=== PATIENT | female | born 1995 | race African-American/Black ===

== ENCOUNTER 2017-03-25 12:02 | Emergency (ER) | payer SELFPAY ==
[~2017-03-25] VITALS: Ht 170.2 cm; Wt 68.2 kg
[2017-03-25 12:03] VITALS: BP 133/89; PULSE 115; RESP 13; TEMP 99.5; O2SAT 100
--- NOTE | 2017-03-25 13:20 | PD ---
HPI Chief Complaint: Cold / Flu Symptoms Time Seen by Provider: 12:59 Travel History International Travel<30 days: No Contact w/Intl Traveler<30days: No History of Present Illness HPI Patient comes to the emergency department complaining of cold/flulike symptoms ongoing for 6 days. Patient reports sneezing in runny nose, then began having a nonproductive cough, subjective fevers, and sore throat. Patient's been using cough drops for symptomatic relief. Denies anything making symptoms worse. Denies any known sick contacts. Denies any chest pain, shortness of breath, headaches, neck pain, abdominal pain, nausea, vomiting, diarrhea, , or loss or change in bowel or bladder. Denies any radiation of pain. PFSH Past Medical History Medical History: Denies Significant Hx ?: Not LMP: beginning of Mar Social History Alcohol Use: No Tobacco Use: No Substance Use: No Allergies-Medications (Allergen,Severity, Reaction): Coded Allergies: No Known Allergies (Unverified , 03/25/17) Reported Meds & Prescriptions Reported Meds & Active Scripts Active No Active Prescriptions or Reported Medications Review of Systems Except as stated in HPI: all other systems reviewed are Neg Physical Exam Narrative GENERAL: Well-developed, well nourished, in no acute distress, and non-ill appearing. SKIN: Focused skin assessment warm and dry. HEAD: Atraumatic. Normocephalic. EYES: Pupils equal and round. EOMI. No scleral icterus. No injection or drainage. ENT: No nasal bleeding or discharge. Mucous membranes pink and moist. Tympanic membranes pearly phan bilaterally. Posterior pharynx nonerythematous without exudate. Uvula midline. No tenderness to facial sinus to palpation. NECK: Trachea midline. No cervical lymphadenopathy. Supple. No nuclear rigidity. CARDIOVASCULAR: Regular rate and rhythm. No murmur appreciated. RESPIRATORY: No accessory muscle use. No respiratory distress. Clear to auscultation. Breath sounds equal bilaterally. No coughing noted on exam. MUSCULOSKELETAL: No obvious deformities. No clubbing. No cyanosis. No edema. Full range of motion. NEUROLOGICAL: Awake and alert. No obvious cranial nerve deficits. Motor grossly within normal limits. Normal speech. PSYCHIATRIC: Appropriate mood and affect; insight and judgment normal. Data Data Last Documented VS Vital Signs Date Time Temp Pulse Resp B/P (MAP) Pulse Ox O2 Delivery O2 Flow Rate FiO2 03/25/17 14:35 03/25/17 13:05 18 03/25/17 12:03 99.5 115 100 Orders Orders Influenzae A/B Antigen (03/25/17 13:01) Group A Rapid Strep Screen (03/25/17 13:01) Strep Culture (Group A) (03/25/17 13:20) Ed Discharge Order (03/25/17 14:09) MDM Medical Decision Making Medical Screen Exam Complete: Yes Emergency Medical Condition: Yes Differential Diagnosis Influenza, strep pharyngitis, viral pharyngitis, viral syndrome, URI Narrative Course Patient looks great. Patients symptom complex is consistent with Influenza, or flu-like illness. The patient is tolerating fluids and is well hydrated. There is no evidence to suggest secondary infection (pneumonia, sepsis/bacteremia, etc.) at this time. I discussed with the patient, diagnosis, and plan of care and to follow up with the patients primary physician. Flu prep is positive. I discussed with the patient initiating Tamiflu and the patient is outside the therapeutic window and the patient agreed with plan. The patient was instructed to return if the worsens in anyway, especially if not tolerating fluids, increased pain or swelling, difficulty swallowing or breathing, or as needed. The patient agreed with plan. Patient in no obvious distress upon re-evaluation. All pertinent laboratory result(s) discussed with patient. Any questions/concerns in reference to patient diagnosis/condition discussed and clarified prior to patient's discharge. Reinforced sheer importance of close follow up with patient's primary physician or primary care clinic. Instructed patient to return to ED immediately, if symptoms return/worsen. Patient showed understanding of above instructions. Further instructions and recommendations were detailed in discharge paperwork. Patient ambulated without difficulty out of ED at discharge. Diagnosis Primary Impression: Influenza A Referrals: [facility] Patient Instructions: General Instructions, Influenza (ED) Departure Forms: School Release Return to School Date: Mar 28, 2017 Additional Instructions: Follow-up with your primary care physician in 3-5 days for reevaluation. Use [id number] cold and flu medication as needed for symptomatic relief. Follow instructions on the packaging. Drink plenty of non-caffeinated and nonalcoholic fluids. Return to the emergency department if symptoms get worse. Scripts No Active Prescriptions or Reported Meds Disposition: DISCHARGE HOME Condition: Stable Lupe Rodríguezew D PA Mar 25, 2017 13:20
== END 2017-03-25 14:35 | disposition home or self-care (01) ==
LOC: NEPK 12:02
DX: J10.1 Influenza due to other identified influenza virus with other respiratory manifestations (principal)
CPT/HCPCS: 87081; 87804; 87880; 99282